=== PATIENT | male | born 1995 | race Caucasian/White ===

== ENCOUNTER 2017-11-02 13:21 | Emergency (ER) | payer MEDICAID ==
[~2017-11-02] VITALS: Ht 172.7 cm; Wt 68.2 kg
[2017-11-02 13:37] VITALS: Ht 172.7 cm; Wt 68.2 kg
[2017-11-02] MEDS ORDERED: CELEXA20 MG PO (13:40)
[2017-11-02] MEDS ORDERED: HYDROCODON-ACE1 EAC7 PO (13:41)
[2017-11-02] MEDS ORDERED: KLONOPIN1 MG PO (13:41)
[2017-11-02] MEDS ORDERED: VOLTAREN75 MG PO (18:08)
[2017-11-02] MEDS ORDERED: ROBAXIN-750750 MG PO (18:08)
[2017-11-02 18:32] VITALS: BP 112/61
== END 2017-11-02 18:18 | disposition home or self-care (01) ==
LOC: D.ER 13:21
DX: S16.1XXA Strain of muscle, fascia and tendon at neck level, initial encounter (principal); V49.9XXA Car occupant (driver) (passenger) injured in unspecified traffic accident, initial encounter; Y93.89 Activity, other specified; Y92.410 Unspecified street and highway as the place of occurrence of the external cause; M79.1 Myalgia